=== PATIENT | female | born 1960 | race African-American/Black ===

== ENCOUNTER 2017-03-08 10:34 | Emergency (ER) | payer MEDICAID ==
[~2017-03-08] VITALS: Ht 165.1 cm; Wt 68.0 kg
[~2017-03-08 10:34] MED LIST: HYD25 PO; MAG355OR15 PO; METO10TA96 PO; OXYC-284 PO; PERCOCET PO
[2017-03-08 10:37] VITALS: Ht 165.1 cm; Wt 68.0 kg
[2017-03-08] MEDS ORDERED: KETOROLAC 60 MG INJ IM STA (10:58)
[2017-03-08] MEDS ORDERED: ONDANSETRON (ODT) 4 MG TAB ODT STA (10:58)
[2017-03-08] MEDS ORDERED: HYDROCODONE/APAP (10/325) TAB PO ONE (11:00)
--- NOTE | 2017-03-08 12:28 | RADRPT ---
PROCEDURE: XR Lumbar Spine. CLINICAL INDICATION: Back pain. TECHNIQUE: AP, lateral and cone-down lateral view of the lumbar spine were obtained. COMPARISON: No prior studies are available for comparison. FINDINGS: There are degenerative changes in the lower thoracic spine. There are 5 lumbar vertebra with degene rative changes in the articular facets at L4-5 and L5-S1. There is disk space narrowing at all 5 S1 . There is a dextrocurvature of the mid lumbar spine. The neural canal and nerve root foramina are normal. There are vascular calcifications in the lower abdominal aorta. Artifacts from the patient 's prior are noted projecting across the upper abdomen and lower chest. IMPRESSION: 1. There is a dextro curvature centered at L2 with degenerative changes in the facets at L4-5 end L 5-S1. 2. Atherosclerotic vascular disease RPTAT:AAJJ Physician Saima Date Time Electronically viewed and signed by Physician Saima on 03/08/2017 12:27 MEERA/
[2017-03-08] MEDS ORDERED: HYDR-906 PO (13:06)
[2017-03-08] MEDS ORDERED: PRED20TA PO (13:06)
[2017-03-08] MEDS ORDERED: IBUP-1542 PO (13:06)
[2017-03-08] MEDS ORDERED: METO10TA92 PO (13:07)
--- NOTE | 2017-03-08 13:11 | ERD ---
ER Documentation Chief Complaint Date/Time DATE: 03/08/17 TIME: 13:08 Chief Complaint LT HIP PAIN RADIATING TO LT LEG , CHRONIC HPI This 56-year-old female presents with approximately 6 week history of pain in her left lower back radiating to her left buttock. She denies any history of trauma or fall. She is a history of back problems but no history of surgery or fracture. Patient denies any urinary complaints, fevers, bowel bladder incontinence, weakness. Patient has multiple other complaints. She complains of some burning epigastric pain associated with swallowing. Patient has history of GERD and takes Prilosec. Denies any sustained chest pain or shortness of breath. ROS All systems reviewed and are negative except as per history of present illness. Medications Home Meds Active Scripts Metoclopramide* (Reglan*) 10 Mg Tablet, 10 MG PO Q6 Y for NAUSEA AND/OR VOMITING , #20 TAB Prov:KERRIE GIL MD 03/08/17 Ibuprofen* (Motrin*) 600 Mg Tab, 600 MG PO Q6, #20 TAB Prov:KERRIE GIL MD 03/08/17 Prednisone* (Prednisone*) 20 Mg Tab, 40 MG PO DAILY for 4 Days, TAB Prov:KERRIE GIL MD 03/08/17 Hydrocodone/Acetaminophen ([place] 5-325 Tablet) 1 Each Tablet, 1 TAB PO Q6H Y for PAIN, #14 TAB Prov:KERRIE GIL MD 03/08/17 Hydrochlorothiazide* (Hydrochlorothiazide*) 25 Mg Tab, 25 MG PO DAILY, #30 TAB Prov:ALIDA HANSEN MD 01/02/16 Oxycodone Hcl-Acetaminophen* (Percocet*) 10-325 Mg Tablet, 1 TAB PO Q4H Y for PAIN, #9 TAB Prov:ALIDA HANSEN MD 01/02/16 Metoclopramide Hcl* (Metoclopramide Hcl*) 10 Mg Tablet, 10 MG PO TID Y for NAUSEA AND OR VOMITING, #20 TAB Prov:TREMAYNE FLORES MD 01/01/16 Mag Hydrox/Al Hydrox/Simeth (Maalox Ms Liquid) 360 Ml Oral.susp, 2 TSP PO TID for PAIN, #24 OZ Prov:TREMAYNE FLORES MD 4/27/16 Oxycodone Hcl/Acetaminophen (Percocet) 1 Tab Tab, 1 TAB PO TID for PAIN, #9 TAB Prov:TREMAYNE FLORES MD 01/01/16 PMhx/Soc Hx Alcohol Use: No Hx Substance Use: Yes (MARIJUANA) Hx Tobacco Use: No Smoking Status: Never smoker Physical Exam Vitals Vital Signs Date Time Temp Pulse Resp B/P Pulse Ox O2 Delivery O2 Flow Rate FiO2 03/08/17 10:37 98.2 90 18 167/87 98 Physical Exam Const: [] Alert, not ill-appearing. Head: Atraumatic Eyes: Normal Conjunctiva ENT: Normal External Ears, Nose and Mouth. Neck: Full range of motion..~ No meningismus. Resp: Clear to auscultation bilaterally Cardio: Regular rate and rhythm, no murmurs Abd: Soft, non tender, non distended. Normal bowel sounds Skin: No petechiae or rashes Back: No midline or flank tenderness. Tenderness in left L4-5 paraspinous muscles. Positive straight leg raise. Patient is amatory with any deficits or weakness . Ext: No cyanosis, or edema Neur: Awake and alert Psych: Normal Mood and Affect Results 24 hrs Current Medications Medications (Trade) Dose Ordered Sig/Sam Route PRN Reason Start Time Stop Time Status Last Admin Dose Admin Ketorolac Tromethamine (Toradol) 60 mg ONCE STAT IM 03/08/17 10:58 03/08/17 11:00 DC 03/08/17 11:14 Acetaminophen/ Hydrocodone Bitart ([place] (10/325)) 1 tab ONCE ONCE PO 03/08/17 11:00 03/08/17 11:02 DC 03/08/17 11:13 Ondansetron HCl (Zofran Odt) 8 mg ONCE STAT ODT 03/08/17 10:58 03/08/17 11:00 DC 03/08/17 11:13 Procedures/MDM Patient is given Toradol 60 mg IM and [place] 10 mg a month and Zofran by mouth. Patient is noted to be ambulatory throughout the ED course without signs of deficits or weakness. X-ray LS-Spine 3V Interpreted by me: Bones: No fracture, or lytic lesions Joints: No dislocation Foreign body: None. Impression-degenerative changes lumbar spine x-ray. Patient signs and symptoms of sciatica in the disc complaint of sinus symptoms of GERD. There is no signs or symptoms of epidural abscess, cauda equina syndrome, neurologic deficits, symptoms of UTI. She will treated with short course of [place] and redness on and ibuprofen. Patient will be given Reglan as well for GERD. Patient is advised on need for primary care follow-up possible for specialty evaluation and endoscopy. Patient is advised to return for fevers , bleeding, new worsening symptoms with primary doctor and specialist as directed. The patient was stable with no new complaints during the ER course. Clinically, there is no current evidence to suggest meningitis, sepsis, acute abdomen, pneumonia, acute coronary syndrome, pulmonary embolism, or any other emergent condition appearing to require further evaluation or hospitalization. The patient should certainly return for any new or worsening symptoms per the aftercare instructions. They should otherwise follow-up with her primary care doctor for reevaluation this week. Departure Diagnosis: Primary Impression: H/O gastroesophageal reflux (GERD) Additional Impression: Sciatica Laterality: left Qualified Code: M54.32 - Sciatica of left side Condition: Stable Patient Instructions: Understanding Sciatica, Back Exercises, Lumbar Referrals: [facility] YOU HAVE RECEIVED A MEDICAL SCREENING EXAM AND THE RESULTS INDICATE THAT YOU DO NOT HAVE A CONDITION THAT REQUIRES URGENT TREATMENT IN THE EMERGENCY DEPARTMENT. FURTHER EVALUATION AND TREATMENT OF YOUR CONDITION CAN WAIT UNTIL YOU ARE SEEN IN YOUR DOCTORS OFFICE WITHIN THE NEXT 1-2 DAYS. IT IS YOUR RESPONSIBILITY TO MAKE AN APPOINTMENT FOR FOLOW-UP CARE. IF YOU HAVE A PRIMARY DOCTOR --you should call your primary doctor and schedule an appointment IF YOU DO NOT HAVE A PRIMARY DOCTOR YOU CAN CALL OUR PHYSICIAN REFERRAL HOTLINE AT IF YOU CAN NOT AFFORD TO SEE A PHYSICIAN YOU CAN CHOSE FROM THE FOLLOWING [facility] [address] [facility]. [facility] [address] [facility]. [facility] [address] [facility]. [facility] [address] [facility]. [facility] [address] [facility]. [facility]. [address] Additional Instructions: X-ray shows mild degenerative changes. See primary doctor for further evaluation and management. Return for fevers, new symptoms. Recommend GI for endoscopy and further evaluation. KERRIE GIL MD Mar 08, 2017 13:10
== END 2017-03-08 13:15 | disposition home or self-care (01) ==
LOC: FTE 10:34
DX: Z87.19 Personal history of other diseases of the digestive system (principal); M54.32 Sciatica, left side
CPT/HCPCS: 72100; 96372; J1885; Z7502; Z7610

== ENCOUNTER 2017-07-26 14:45 | Emergency (ER) | payer MEDICAID ==
[~2017-07-26] VITALS: Ht 165.1 cm; Wt 70.7 kg
[~2017-07-26 14:45] MED LIST changes: -HYD25 PO; +HYDR-906 PO; +HYDR25TA6 PO; +IBUP-1542 PO; +METO10TA92 PO; +PRED20TA PO
[2017-07-26 14:52] VITALS: Ht 165.1 cm; Wt 70.7 kg
[2017-07-26] MEDS ORDERED: KETOROLAC 30 MG INJ IM STA (16:17)
[2017-07-26] MEDS ORDERED: morphine 10 MG INJ IM ONE (16:30)
[2017-07-26] MEDS ORDERED: DIAZEPAM 5 MG TAB PO ONE (16:30)
--- NOTE | 2017-07-26 17:14 | RADRPT ---
PROCEDURE: Left hip series CLINICAL INDICATION: Left hip pain TECHNIQUE: AP and frog-leg lateral views of the left hip are submitted COMPARISON: None FINDINGS: The left hip appears aligned without evidence of fractures, dislocations or osteolytic lesions. Bebeto tabulum appears intact.. IMPRESSION: Normal RPTAT: RR .Hernan Brown MD, Date Time Electronically viewed and signed by .Hernan Brown MD, on 07/26/2017 17:13 .L/
[2017-07-26] MEDS ORDERED: ALBUTEROL 0.083% (NEB) 2.5 MG/3 ML AMP HHN STA (17:24)
[2017-07-26] MEDS ORDERED: IPRATROPIUM (NEB) 0.5 MG/2.5 ML AMP HHN ONE (17:30)
[2017-07-26] MEDS ORDERED: predniSONE 20 MG TAB PO ONE (17:30)
[2017-07-26] MEDS ORDERED: ONDANSETRON (ODT) 4 MG TAB ODT STA (18:10)
[2017-07-26] MEDS ORDERED: HYDR-906 PO (18:18)
[2017-07-26] MEDS ORDERED: ONDA4TAB11 PO (18:18)
[2017-07-26] MEDS ORDERED: HYDR-842 PO (18:18)
[2017-07-26] MEDS ORDERED: ALBU18HF INHALATION (18:18)
[2017-07-26] MEDS ORDERED: RANI150T9 PO (18:18)
[2017-07-26] MEDS ORDERED: NAPR-688 PO (18:18)
[2017-07-26] MEDS ORDERED: PRED20TA PO (18:18)
--- NOTE | 2017-07-26 18:26 | ERD ---
ER Documentation Chief Complaint Chief Complaint left hip pain x5 days HPI 57-year-old female presents for left pain worse for 5 days but been going on for a couple of weeks. She has had no specific trauma to the area. It hurts worse when she uses it. She also has shortness of breath with a history of asthma and believe she is wheezing. Denies fever or chills. Also has a itchy skin rash that is been present for a couple of days. Also states that she has mild nausea from time to time when she eats. Denies any abdominal pain. Has no chest pain. ROS All systems reviewed and are negative except as per history of present illness. Medications Home Meds Active Scripts Hydroxyzine Hcl* (Atarax*) 25 Mg Tab, 25 MG PO Q6H Y for ITCHING, #20 TAB Prov:TESSIEGENEVIEVE 07/26/17 Ranitidine Hcl* (Zantac*) 150 Mg Tablet, 150 MG PO BID Y for EPIGASTRIC PAIN, # 30 TAB Prov:TESSIEGENEVIEVE 07/26/17 Prednisone* (Prednisone*) 20 Mg Tab, 60 MG PO DAILY for 4 Days, TAB Prov:TESSIEGENEVIEVE 07/26/17 Albuterol Sulfate* (Ventolin HFA*) 18 Gm Hfa.aer.ad, 2 PUFF INHALATION Q4H, #1 INHALER Prov:GENEVIEVE KURTZ 07/26/17 Ondansetron (Zofran Odt) 4 Mg Tab.rapdis, 4 MG PO Q6, #20 Prov:TESSIEGENEVIEVE 07/26/17 Naproxen* (Naproxen*) 500 Mg Tablet, 500 MG PO BID Y for PAIN, #20 TAB Prov:GENEVIEVE KURTZ 07/26/17 Hydrocodone/Acetaminophen ([place]ki 5-325 Tablet) 1 Each Tablet, 1 EACH PO Q6 for SEVERE PAIN LEVEL 7-10, #24 TAB Prov:TESSIEGENEVIEVE 07/26/17 Metoclopramide* (Reglan*) 10 Mg Tablet, 10 MG PO Q6 Y for NAUSEA AND/OR VOMITING , #20 TAB Prov:KERRIE GIL MD 03/08/17 Ibuprofen* (Motrin*) 600 Mg Tab, 600 MG PO Q6, #20 TAB Prov:KERRIE GIL MD 03/08/17 Prednisone* (Prednisone*) 20 Mg Tab, 40 MG PO DAILY for 4 Days, TAB Prov:KERRIE GIL MD 03/08/17 Hydrocodone/Acetaminophen ([place] 5-325 Tablet) 1 Each Tablet, 1 TAB PO Q6H Y for PAIN, #14 TAB Prov:KERRIE GIL MD 03/08/17 Hydrochlorothiazide* (Hydrochlorothiazide*) 25 Mg Tab, 25 MG PO DAILY, #30 TAB Prov:ALIDA HANSEN MD 01/02/16 Oxycodone Hcl-Acetaminophen* (Percocet*) 10-325 Mg Tablet, 1 TAB PO Q4H Y for PAIN, #9 TAB Prov:ALIDA HANSEN MD 01/02/16 Metoclopramide Hcl* (Metoclopramide Hcl*) 10 Mg Tablet, 10 MG PO TID Y for NAUSEA AND OR VOMITING, #20 TAB Prov:TREMAYNE FLORES MD 01/01/16 Mag Hydrox/Al Hydrox/Simeth (Maalox Ms Liquid) 360 Ml Oral.susp, 2 TSP PO TID for PAIN, #24 OZ Prov:TREMAYNE FLORES MD 01/01/16 Oxycodone Hcl/Acetaminophen (Percocet) 1 Tab Tab, 1 TAB PO TID for PAIN, #9 TAB Prov:TREMAYNE FLORES MD 01/01/16 Allergies Allergies: Coded Allergies: Penicillins (Unverified Allergy, Unknown, 07/26/17) sulfamethoxazole (Unverified Allergy, Unknown, rash, 07/26/17) trimethoprim (Unverified Allergy, Unknown, rash, 07/26/17) PMhx/Soc Hx Alcohol Use: No Hx Substance Use: Yes (MARIJUANA) Hx Tobacco Use: No Smoking Status: Never smoker Physical Exam Vitals Vital Signs Date Time Temp Pulse Resp B/P Pulse Ox O2 Delivery O2 Flow Rate FiO2 07/26/17 17:49 85 24 95 21 07/26/17 14:52 98.4 90 20 134/91 97 Physical Exam Const: [] Mild distress Head: Atraumatic Eyes: Normal Conjunctiva ENT: Normal External Ears, Nose and Mouth. Neck: Full range of motion. Resp: Bilateral expiratory wheezing that is mild to moderate.d Cardio: Regular rate and rhythm, no murmurs Abd: Soft, non tender, non distended. Normal bowel sounds Skin: No petechiae or rashes visualized. Mild excoriations on abdomen right lateral thigh Back: No midline or flank tenderness Ext: No cyanosis, or edema, no deformities, distal pulses intact all 4 extremities, patient moving her hip and abduction or flexion reproduces some of the pain. No specific tenderness. Neur: Awake and alert oriented 3, no focal deficits Psych: Normal Mood and Affect Results 24 hrs Current Medications Medications (Trade) Dose Ordered Sig/Sam Route PRN Reason Start Time Stop Time Status Last Admin Dose Admin Morphine Sulfate (morphine) 8 mg ONCE ONCE IM 07/26/17 16:30 07/26/17 16:31 DC 07/26/17 16:36 Ketorolac Tromethamine (Toradol) 30 mg ONCE STAT IM 07/26/17 16:17 07/26/17 16:20 DC 07/26/17 16:36 Diazepam (Valium) 5 mg ONCE ONCE PO 07/26/17 16:30 07/26/17 16:31 DC 07/26/17 16:36 Albuterol (Proventil 0.083% (Neb)) 10 mg ONCE STAT HHN 07/26/17 17:24 07/26/17 17:25 DC 07/26/17 17:49 Ipratropium [place] (Atrovent 0.02% (Neb)) 1 mg ONCE ONCE HHN 07/26/17 17:30 07/26/17 17:31 DC 07/26/17 17:48 Prednisone (Prednisone) 60 mg ONCE ONCE PO 07/26/17 17:30 07/26/17 17:31 DC 07/26/17 17:30 Hydroxyzine HCl (Atarax) 25 mg ONCE ONCE PO 07/26/17 18:30 07/26/17 18:31 Ondansetron HCl (Zofran Odt) 4 mg ONCE STAT ODT 07/26/17 18:10 07/26/17 18:11 DC Procedures/MDM With asthma exacerbation as well as a left hip strain. She was given IM morphine and Toradol which did ease the pain of the hip. Patient is ambulatory emergency room. Also is having an asthma exacerbation was treated with albuterol Atrovent nebulized. Also given a 60 mg prednisone tab as well as Atarax for her itching and Zofran for occasional nausea. I doubt any serious abdominal emergency. I doubt cardiac ischemia as the patient has wheezing and does not have any chest pain. Of discharge with primary care follow-up in next 2 3 days and instructions to obtain an MRI as an outpatient if the hip pain is not resolved. Also discharging with a Ventolin inhaler, prednisone 4 days, Atarax, Zofran, Sobieski and naproxen. Left hip x-ray interpretation: Normal left hip x-ray. I see no fracture dislocation or soft tissue abnormalities. Departure Diagnosis: Primary Impression: Strain of left hip Additional Impressions: Asthma exacerbation Urticaria Condition: Stable Patient Instructions: Self-Care for Skin Rashes, Hip Strain Referrals: [facility] YOU HAVE RECEIVED A MEDICAL SCREENING EXAM AND THE RESULTS INDICATE THAT YOU DO NOT HAVE A CONDITION THAT REQUIRES URGENT TREATMENT IN THE EMERGENCY DEPARTMENT. FURTHER EVALUATION AND TREATMENT OF YOUR CONDITION CAN WAIT UNTIL YOU ARE SEEN IN YOUR DOCTORS OFFICE WITHIN THE NEXT 1-2 DAYS. IT IS YOUR RESPONSIBILITY TO MAKE AN APPOINTMENT FOR FOLOW-UP CARE. IF YOU HAVE A PRIMARY DOCTOR --you should call your primary doctor and schedule an appointment IF YOU DO NOT HAVE A PRIMARY DOCTOR YOU CAN CALL OUR PHYSICIAN REFERRAL HOTLINE AT IF YOU CAN NOT AFFORD TO SEE A PHYSICIAN YOU CAN CHOSE FROM THE FOLLOWING [facility] [address] [facility]. [facility] [address] [facility]. [facility] [address] [facility]. [facility] [address] [facility]. [facility] [address] [facility]. [facility]. [address] Additional Instructions: Call your primary care doctor TOMORROW for an appointment during the next 2-3 days. Ask for an appoitment for an MRI if symptoms do not resolve. See the doctor sooner or return here if your condition worsens before your appointment time. GENEVIEVE KURTZ DO Jul 26, 2017 18:26
[2017-07-26] MEDS ORDERED: hydrOXYzine HCL 25 MG TAB PO ONE (18:30)
[2017-07-26] MEDS ORDERED: METH500T PO (18:45)
[2017-07-26 19:16] VITALS: BP 124/80; PULSE 77; RESP 16; TEMP 98.4
== END 2017-07-26 19:17 | disposition home or self-care (01) ==
LOC: FTE 14:45
DX: S76.012A Strain of muscle, fascia and tendon of left hip, initial encounter (principal); J45.901 Unspecified asthma with (acute) exacerbation; L50.9 Urticaria, unspecified; X58.XXXA Exposure to other specified factors, initial encounter; Y92.9 Unspecified place or not applicable
CPT/HCPCS: 73510; 94664; 96372; J1885; J2270; J7512; Z7502; Z7610

== ENCOUNTER 2017-09-12 13:33 | Emergency (ER) | END 2017-09-12 17:49 | disposition home or self-care (01) ==

== ENCOUNTER 2017-09-15 23:57 | Emergency (ER) | END 2017-09-16 05:20 | disposition home or self-care (01) ==

== ENCOUNTER 2018-02-08 06:07 | Emergency (ER) | END 2018-02-08 09:08 | disposition home or self-care (01) ==

== ENCOUNTER 2018-03-26 05:46 | Emergency (ER) | END 2018-03-26 09:21 | disposition home or self-care (01) ==

== ENCOUNTER 2018-09-19 10:41 | Emergency (ER) | payer BC ==
[~2018-09-19] VITALS: Wt 67.6 kg
[~2018-09-19 10:41] MED LIST changes: +AMLO5TAB4 PO; +DOCU-144 PO; +HYDR-4011 PO; -HYDR-906 PO; +HYDR25SU23 PR; -HYDR25TA6 PO; -IBUP-1542 PO; -MAG355OR15 PO; +METH750T2 PO; -METO10TA92 PO; -METO10TA96 PO; +ONDA4TAB95 PO; -OXYC-284 PO; -PERCOCET PO; -PRED20TA PO; +RANI150T5 PO
--- NOTE | 2018-09-19 11:26 | ERD ---
ER Documentation Chief Complaint Chief Complaint PT BIB AMBULANCE WITH NAUSEA, VOMITING, DIARRHEA, BODYACHES, FEVER AT HOME HPI The patient is a 58-year-old female, presenting with vomiting/diarrhea/epigastric abdominal pain that began last night, denies hematemesis/hematochezia. She denies fever, chills, neck pain, chest pain, dy suria. She does smoke a pack a day, drinks socially, denies recent traveling Past medical history: Hypertension, asthma, GERD, hemorrhoids Past surgical history: One ROS All systems reviewed and are negative except as per history of present illness. Medications Home Meds Active Scripts Ondansetron (Ondansetron Odt) 4 Mg Tab.rapdis, 4 MG PO Q6H PRN for NAUSEA AND/OR VOMITING, #10 TAB Prov:MARIBEL DONNELLY MD 09/19/18 Loperamide Hcl* (Imodium*) 2 Mg Capsule, 2 MG PO .AFTER EA LOOSE BM PRN for DIARRHEA, #10 TAB Prov:MARIBEL DONNELLY MD 09/19/18 Pantoprazole* (Protonix*) 40 Mg Tablet.dr, 40 MG PO DAILY, #20 TAB Prov:MARIBEL DONNELLY MD 09/19/18 Reported Medications Amlodipine Besylate* (Norvasc*) 5 Mg Tablet, 5 MG PO DAILY, TAB 08/20/18 Ondansetron Hcl* (Ondansetron Hcl*) 4 Mg Tablet, 4 MG PO Q8H PRN for NAUSEA AND OR VOMITING, TAB 08/20/18 Ranitidine Hcl* (Ranitidine Hcl*) 150 Mg Tablet, 150 MG PO Q12, #60 TAB 08/20/18 Methocarbamol* (Methocarbamol*) 750 Mg Tablet, 750 MG PO Q6H PRN for MUSCLE SPASMS, TAB 08/20/18 Discontinued Scripts Docusate Sodium* (Colace*) 100 Mg Capsule, 100 MG PO TID, #30 CAP Prov:YESENIA NYE MD 08/20/18 Hydrocodone/Acetaminophen ([place] 5-325 Tablet) 1 Each Tablet, 1 TAB PO Q6H PRN for PAIN, #20 TAB Prov:YESENIA NYE MD 08/20/18 Hydrocortisone Acetate (Anusol-Hc) 25 Mg Supp.rect, 1 SUPP MT BID PRN for HEMORROID PAIN/ITCHING, #12 SUPP.RECT Prov:YESENIA NYE MD 08/20/18 Allergies Allergies: Coded Allergies: Penicillins (Unverified Allergy, Unknown, 09/19/18) sulfamethoxazole (Unverified Allergy, Unknown, rash, 09/19/18) trimethoprim (Unverified Allergy, Unknown, rash, 09/19/18) PMhx/Soc History of Surgery: Yes ( X1) Anesthesia Reaction: No Hx Neurological Disorder: Yes (spinal cyst) Hx Respiratory Disorders: Yes (asthma) Hx Cardiac Disorders: No Hx Psychiatric Problems: No Hx Miscellaneous Medical Probl: Yes (LEFT HIP PAIN 2016, GASTRITIS) Hx Alcohol Use: Yes (social) Hx Substance Use: Yes (MARIJUANA) Hx Tobacco Use: No Physical Exam Vitals Vital Signs Date Temp Pulse Resp B/P (MAP) Pulse Ox O2 O2 Flow FiO2 Time Delivery Rate 09/19/18 98.1 84 17 189/88 98 10:47 (121) Physical Exam Const: No acute distress. Head: Atraumatic. Eyes: Normal Conjunctiva. ENT: Normal External Ears, Nose and Mouth. Neck: Full range of motion. No meningismus. Resp: Clear to auscultation bilaterally. Cardio: Regular rate and rhythm. Abd: Soft, non distended, normal bowel sounds, mild epigastric abdominal discomfort, no rigidity/rebound/CVA tenderness Skin: No petechiae or rashes. Back: No midline or flank tenderness. Ext: No cyanosis, or edema. Neur: Awake and alert. No focal deficit Psych: Normal Mood and Affect. Result Diagram: 09/19/18 1148 09/19/18 1148 Results 24 hrs Laboratory Tests Test 09/19/18 11:48 09/19/18 13:35 White Blood Count 5.1 10^3/ul Red Blood Count 5.77 10^6/ul Hemoglobin 15.5 g/dl Hematocrit 47.7 % Mean Corpuscular Volume 82.7 fl Mean Corpuscular Hemoglobin 26.9 pg Mean Corpuscular Hemoglobin Concent 32.5 g/dl Red Cell Distribution Width 13.4 % Platelet Count 341 10^3/UL Mean Platelet Volume 7.9 fl Immature Granulocytes % 0.200 % Neutrophils % 71.9 % Lymphocytes % 21.0 % Monocytes % 6.5 % Eosinophils % 0.0 % Basophils % 0.4 % Nucleated Red Blood Cells % 0.0 /100WBC Immature Granulocytes # 0.010 10^3/ul Neutrophils # 3.7 10^3/ul Lymphocytes # 1.1 10^3/ul Monocytes # 0.3 10^3/ul Eosinophils # 0.0 10^3/ul Basophils # 0.0 10^3/ul Nucleated Red Blood Cells # 0.0 10^3/ul Sodium Level 141 mmol/L Potassium Level 4.1 mmol/L Chloride Level 102 mmol/L Carbon Dioxide Level 24 mmol/L Anion Gap 15 Blood Urea Nitrogen 15 mg/dl Creatinine 0.60 mg/dl Est Glomerular Filtrat Rate mL/min > 60 mL/min Glucose Level 154 mg/dl Calcium Level 9.6 mg/dl Total Bilirubin 0.1 mg/dl Direct Bilirubin 0.00 mg/dl Indirect Bilirubin 0.1 mg/dl Aspartate Amino Transf (AST/SGOT) 40 IU/L Alanine Aminotransferase (ALT/SGPT) 26 IU/L Alkaline Phosphatase 88 IU/L Total Protein 8.3 g/dl Albumin 4.7 g/dl Globulin 3.60 g/dl Albumin/Globulin Ratio 1.30 Lipase 44 U/L Bedside Urine pH (LAB) 7.0 Bedside Urine Protein (LAB) 2+ Bedside Urine Glucose (UA) Negative Bedside Urine Ketones (LAB) 3+ Bedside Urine Blood 1+ Bedside Urine Nitrite (LAB) Negative Bedside Urine Leukocyte Esterase (L Negative Current Medications Medications Dose Sig/Sam Start Time Status Last (Trade) Ordered Route PRN Stop Time Admin Dose Reason Admin Ondansetron 4 mg ONCE STAT 09/19/18 DC 09/19/18 HCl (Zofran IV 11:35 11:49 Inj) 09/19/18 11:38 Morphine 2 mg ONCE STAT 09/19/18 DC 09/19/18 Sulfate IV 11:35 11:50 (morphine) 09/19/18 11:38 10 mg ONCE ONCE 09/19/18 DC 09/19/18 Metoclopramid IV 12:30 13:21 e HCl 09/19/18 12:31 (Reglan) 40 ml ONCE ONCE 09/19/18 DC 09/19/18 Miscellaneous PO 14:00 14:38 Medication 09/19/18 14:01 (Gi Cocktail (2)) Loperamide 4 mg ONCE ONCE 09/19/18 DC HCl PO 14:00 (Imodium Cap) 09/19/18 14:01 Ondansetron 4 mg ONCE STAT 09/19/18 DC 09/19/18 HCl (Zofran IV 14:17 14:20 Inj) 09/19/18 14:18 Procedures/MDM [place] [id number] [place] [id number] Radiology Main Line: [phone] DIAGNOSTIC IMAGING REPORT Patient: KAEL CHEN : 1960 Age: 58 Sex: F MR #: [id number] DOS: 09/19/18 1135 Ordering MD: MARIBEL DONNELLY MD Location: E/R Room/Bed: PROCEDURE: US Abdomen (right upper quadrant). CLINICAL INDICATION: Abdominal pain TECHNIQUE: Multiple real-time longitudinal and transverse images of the right upper quadrant of the abdomen were acquired utilizing a curved array transducer. Images were reviewed on a high-resolution PACS workstation. COMPARISON: CT from 08/20/2018. FINDINGS: The liver is normal in size and echogenicity without focal mass or intrahepatic biliary dilatation. The gallbladder is normal. There is no pericholecystic fluid or gallbladder wall thickening or gallstones. No intra or extrahepatic biliary dilatation is seen. The common bile duct measures 5.1 mm in maximal dimension. The visualized portions of the pancreas are unremarkable with obscuration of the tail of the pancreas. No free fluid is identified. The right kidney measures 8.3 cm in length. There is normal echogenicity within the right kidney. There is no perinephric fluid collection. No hydronephrosis, mass, or calculus is seen. IMPRESSION: Unremarkable right upper quadrant ultrasound. RPTAT: JJ .Humberto Mccarty MD, Date Time Electronically viewed and signed by .Humberto Mccarty MD, on 09/19/2018 13:32 .A/ CC: MARIBEL DONNELLY MD [id number] MEDICAL MAKING DECISION: The patient is a 58-year-old female, presenting with ac igiugig vomiting and diarrhea, was treated with Zofran 4 mg IV x2, Reglan 10 mg IV for nausea, morphine 2 mg IV for pain, Imodium 4 mg p.o. for diarrhea and GI cocktail with good response, stable for outpatient follow-up The differential diagnoses considered include but are not limited to worsening, colitis, cholelithiasis, cholecystitis, choledocholithiasis, cholangitis, pancreatitis, hepatitis, gastritis, peptic ulcer disease, gastric ulcer, appendicitis, cystitis, diverticulitis, partial small bowel obstruction. Departure Diagnosis: Primary Impression: Vomiting and diarrhea Condition: Good Comments She was discharged with Protonix, Imodium, Zofran ODT I discussed the findings with the patient. I advised the patient to follow-up with the primary physician in about 1-2 days, sooner if needed and return if any concern. Disclaimer: Inadvertent spelling and grammatical errors are likely due to EHR/dictation software use and do not reflect on the overall quality of patient care. Also, please note that the electronic time recorded on this note does not necessarily reflect the actual time of the patient encounter. MARIBEL DONNELLY MD Sep 19, 2018 11:26
[2018-09-19] MEDS ORDERED: morphine 2 MG INJ IV STA (11:35)
[2018-09-19] MEDS ORDERED: ONDANSETRON 4 MG INJ IV STA ×2 (11:35→14:17)
[2018-09-19] MEDS ORDERED: METOCLOPRAMIDE 10 MG INJ IV ONE (12:30)
[2018-09-19] MEDS ORDERED: LOPERAMIDE 2 MG CAP PO ONE (14:00)
[2018-09-19] MEDS ORDERED: LIDOCAINE/MYLANTA 40 ML BTL PO ONE (14:00)
[2018-09-19] MEDS ORDERED: LOPE2CAP PO (14:39)
[2018-09-19] MEDS ORDERED: PANT40TA3 PO (14:39)
[2018-09-19] MEDS ORDERED: ONDA4TAB14 PO (14:39)
[2018-09-19 14:41] VITALS: BP 157/101; PULSE 95; RESP 17
[2018-09-19] MEDS ORDERED: LORAZEPAM 0.5 MG TAB PO ONE (16:00)
== END 2018-09-19 16:04 | disposition home or self-care (01) ==
LOC: E/R 10:41
DX: R11.2 Nausea with vomiting, unspecified (principal); R19.7 Diarrhea, unspecified; I10 Essential (primary) hypertension; J45.909 Unspecified asthma, uncomplicated
CPT/HCPCS: 36415; 76705; 80053; 81003; 83690; 85025; 96374; 96375; 96376; 99285; J2270; J2405; J2765

== ENCOUNTER 2018-12-30 13:04 | Emergency (ER) | payer BC ==
[~2018-12-30] VITALS: Ht 162.6 cm; Wt 63.6 kg
[~2018-12-30 13:04] MED LIST changes: -DOCU-144 PO; -HYDR-4011 PO; -HYDR25SU23 PR; +LOPE2CAP PO; +ONDA4TAB14 PO; +PANT40TA3 PO
[2018-12-30 13:15] VITALS: Ht 162.6 cm; Wt 63.6 kg
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
[2018-12-30] MEDS ORDERED: METH500T8 PO (15:02)
[2018-12-30 15:19] VITALS: BP 125/96; PULSE 95; RESP 16
== END 2018-12-30 15:28 | disposition home or self-care (01) ==
LOC: E/R 13:04
DX: Z00.00 Encounter for general adult medical examination without abnormal findings (principal); J45.909 Unspecified asthma, uncomplicated
CPT/HCPCS: 71045; 80053; 84484; 85025; 93005

== ENCOUNTER 2019-01-02 14:32 | Emergency (ER) | payer BC ==
[~2019-01-02] VITALS: Ht 157.5 cm; Wt 65.0 kg
[~2019-01-02 14:32] MED LIST changes: +METH500T8 PO
[2019-01-02] MEDS ORDERED: SOD CHLORIDE 0.9% 1,000 ML IV STA ×2 (14:49)
[2019-01-02] MEDS ORDERED: ONDANSETRON 4 MG INJ IV STA ×2 (14:49→16:20)
[2019-01-02] MEDS ORDERED: HYDROmorphONE 1 MG/ML SYG IV STA (14:49)
[2019-01-02 15:07] VITALS: Ht 157.5 cm; Wt 65.0 kg
[2019-01-02] MEDS ORDERED: IOHEXOL 300MG/ML 150 ML BTL ONE (16:11)
[2019-01-02] MEDS ORDERED: SOD CHLORIDE 0.9% 100 ML ONE (16:11)
[2019-01-02] MEDS ORDERED: AMLO5TAB4 PO (16:12)
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
[2019-01-02] MEDS ORDERED: ONDA8TAB14 PO (17:46)
[2019-01-02] MEDS ORDERED: DIPH1TAB PO (17:46)
[2019-01-02] MEDS ORDERED: DICY10CA40 PO (17:46)
[2019-01-02] MEDS ORDERED: CIPR500T4 PO (17:46)
[2019-01-02 18:01] VITALS: BP 129/89; PULSE 74; RESP 16
== END 2019-01-02 18:36 | disposition home or self-care (01) ==
LOC: E/R 14:32
DX: K52.9 Noninfective gastroenteritis and colitis, unspecified (principal); J45.909 Unspecified asthma, uncomplicated
CPT/HCPCS: 36415; 74177; 80053; 83690; 85025; 96374; 96375; 96376; 99285; J1170; J2405; J7030; Q9967